=== PATIENT | male | born 1995 | race Caucasian/White ===

== ENCOUNTER 2018-10-08 13:56 | Inpatient (IN) ==
[2018-10-08] MEDS ORDERED: Acetaminophen 325 MG Tablet PO ONE (14:02)
[2018-10-08 14:26] LABS: Baso # (Auto) 0.1 th/mm3 (0.0-0.2); Baso % (Auto) 1.1 % (0.0-2.0); Eos # (Auto) 0.1 th/mm3 (0.0-0.4); Eos % (Auto) 0.9 % (0.0-4.0); Hematocrit 40.2 % (39.0-51.0); Hemoglobin 12.5 gm/dL (13.0-17.0); Lymph # (Auto) 1.9 th/mm3 (1.0-4.8); Lymph % (Auto) 27.6 % (9.0-44.0); Mean Corpuscular HGB Conc 31.2 % (32.0-36.0); Mean Corpuscular Hemoglobin 20.5 pg (27.0-34.0); Mean Corpuscular Volume 65.8 fL (80.0-100.0); Mean Platelet Volume 7.2 fL (7.0-11.0); Mono # (Auto) 0.5 th/mm3 (0.0-0.9); Mono % (Auto) 7.3 % (0.0-8.0); Neut # (Auto) 4.4 th/mm3 (1.8-7.7); Neut % (Auto) 63.1 % (16.0-70.0); Platelet Count 295 th/mm3 (150-450); Red Blood Count 6.11 mil/mm3 (4.50-5.90); Red Cell Distribution Width 15.3 % (11.6-17.2)
[2018-10-08] MEDS ORDERED: Sod Chloride 0.9% Inj 1,000 ML IV.SIG SCH (14:30)
[2018-10-08] MEDS: Sod Chloride 0.9% Inj 1,000 ML IV.CONT SCH ×2 (14:35→22:20)
[2018-10-08 14:37] LABS: Activated Partial Thrombo Time 21.6 sec (23.4-31.7); INR 1.2 Ratio; Prothrombin Time 12.5 sec (9.8-11.6)
[2018-10-08 14:42] LABS: Anion Gap 18 meq/L (5-15); Aspartate Aminotransferase 20 U/L (15-37); Blood Urea Nitrogen 18 mg/dL (7-18); Calcium 8.9 mg/dL (8.5-10.1); Carbon Dioxide 15.3 meq/L (21.0-32.0); Chloride 107 meq/L (98-107); Glomerular Filtration Rate 75 mL/min (>89); Glucose,Random 120 mg/dL (74-106); Magnesium 2.4 mg/dL (1.5-2.5); Potassium 3.7 meq/L (3.5-5.1); Sodium 140 meq/L (136-145)
--- NOTE | 2018-10-08 14:45 | ED ---
HPI General Chief Complaint: Seizure Stated Complaint: Medical Time Seen by Provider: 10/08/18 14:02 Source: patient, family and EMS Mode of arrival: ambulatory Limitations: no limitations History of Present Illness HPI Narrative: 23-year-old male was brought in by EMS after a seizure episode. Patient has history of Chiari malformation status post craniotomy when he was 7- year-old. Patient was evaluated again when he was 14-year-old for headache. 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 Patient has surgery and shunt placement subsequently. Mother states that patient started intracranially and ended at the upper cervical spine. Patient was having tingling sensation of the face and dizziness and was seen by neurologist 8 months ago. Mom reported CT scan at that time was normal. Patient had all procedures done in [place]. Patient visiting [facility] today. Patient started having generalized tonic-clonic seizure this afternoon. EMS was called. Patient was brought to the ED for evaluation. Patient complained of severe headache. Patient denies any visual change. Patient denies any neck pain. Patient denies any chest pain or shortness of breath. Patient denies abdominal pain. Patient denies any focal weakness or numbness or extremity. Patient states that he has nausea and vomiting. Patient denies any urinary or bowel incontinence. Postictal state was reported by EMS. complaint: Reports seizure Onset (ago): minute(s) Description of Episode: Reports tonic-clonic movement -: minutes(s) Witnessed: yes - by bystander Trauma: No Seizure History: Reports none Place: other (Indoor facility) Possible Precipitating Event: Reports none Treatments prior to arrival: Reports none Related Data Home Medications Medication Instructions Recorded Confirmed No Known Home Medications 10/08/18 10/08/18 Allergies Allergy/AdvReac Type Severity Reaction Status Date / Time No Known Allergies Allergy Verified 10/08/18 13:58 Review of Systems ROS: all other systems reviewed are negative [facility] Medical History Medical History Chiari I malformation (Acute) Social History Social History Second Hand Smoke Exposure: No Smoking Status: Current every day smoker Tobacco Type: Cigarettes How Often Do You Have a Drink Containing Alcohol: Never Recent Travel in [facility] within the Last 8 Weeks: Yes Recent Out of Country Travel within the Last 8 Weeks: No Immunization History Tetanus Immunization: Unsure Exam Narrative Exam Narrative: GENERAL: Well-nourished, well-developed patient. SKIN: Focused skin assessment warm/dry. HEAD: Normocephalic. EYES: No scleral icterus. No injection or drainage. Pupils 2 mm equal reactive. NECK: Supple, trachea midline. No JVD or lymphadenopathy. CARDIOVASCULAR: Regular rate and rhythm without murmurs, gallops, or rubs. RESPIRATORY: Breath sounds equal bilaterally. No accessory muscle use. GASTROINTESTINAL: Abdomen soft, non-tender, nondistended. MUSCULOSKELETAL: No cyanosis, or edema. BACK: Nontender without obvious deformity. No CVA tenderness. Neurologic exam: Patient is awake and alert oriented x3. Patient moves all extremities well. No obvious focal neurological deficit. Course Initial Documented Vital Signs Pulse Rate 70 10/08/18 13:59 Respiratory Rate 20 10/08/18 13:59 Blood Pressure 124/78 10/08/18 13:59 Pulse Oximetry 100 10/08/18 13:59 Last Documented Vital Signs Pulse Rate 68 10/08/18 16:38 Respiratory Rate 20 10/08/18 16:38 Blood Pressure 116/66 10/08/18 16:38 Pulse Oximetry 100 10/08/18 16:38 Medical Decision Making MDM Narrative Medical decision making narrative: 23-year-old male with seizure. History of Chiari malformation status post surgery and shunt placement. Normal saline solution 1 L IV bolus. Zofran 4 mg IV. Tylenol 650 mg p.o. I spoke with Dr. Barnes, neurologist head of operation and logistics. Advised Keppra 1 g IV now and Keppra 1 g p.o. twice daily. Patient will be admitted to the medical service with consultation to neurologist. Medical Screen Exam Complete: Yes Emergency Medical Condition: Yes Differential Diagnosis Differential Diagnosis: Differential diagnosis including new onset seizure, electrolyte abnormality, shunt malfunction. Lab Data Lab results reviewed: Yes I reviewed the patient's lab results. Result diagrams: 10/08/18 14:00 10/08/18 14:00 Lab Results 10/08/18 10/08/18 10/08/18 Range/Units 14:00 14:00 14:00 WBC 7.0 (4.0-11.0) th/mm3 RBC 6.11 H (4.50-5.90) mil/mm3 Hgb 12.5 L (13.0-17.0) gm/dL Hct 40.2 (39.0-51.0) % MCV 65.8 L (80.0-100.0) fL MCH 20.5 L (27.0-34.0) pg MCHC 31.2 L (32.0-36.0) % RDW 15.3 (11.6-17.2) % Plt Count 295 (150-450) th/mm3 MPV 7.2 (7.0-11.0) fL Neut % (Auto) 63.1 (16.0-70.0) % Lymph % (Auto) 27.6 (9.0-44.0) % Beckham % (Auto) 7.3 (0.0-8.0) % Eos % (Auto) 0.9 (0.0-4.0) % Baso % (Auto) 1.1 (0.0-2.0) % Neut # (Auto) 4.4 (1.8-7.7) th/mm3 Lymph # (Auto) 1.9 (1.0-4.8) th/mm3 Beckham # (Auto) 0.5 (0.0-0.9) th/mm3 Eos # (Auto) 0.1 (0.0-0.4) th/mm3 Baso # (Auto) 0.1 (0.0-0.2) th/mm3 WBC Differential . Differential Comment Auto diff final PT 12.5 H (9.8-11.6) sec INR 1.2 Ratio APTT 21.6 L (23.4-31.7) sec Sodium (136-145) meq/L Potassium (3.5-5.1) meq/L Chloride (98-107) meq/L Carbon Dioxide (21.0-32.0) meq/L Anion Gap (5-15) meq/L BUN (7-18) mg/dL Creatinine (0.60-1.30) mg/dL Estimated GFR (>89) mL/min Random Glucose (74-106) mg/dL Calcium (8.5-10.1) mg/dL Magnesium (1.5-2.5) mg/dL Total Bilirubin (0.2-1.0) mg/dL AST (15-37) U/L ALT (12-78) U/L Alkaline Phosphatase (45-117) U/L Total Creatine Kinase (39-308) U/L Total Protein (6.4-8.2) g/dL Albumin (3.4-5.0) g/dL TSH Cancelled 10/08/18 Range/Units 14:00 WBC (4.0-11.0) th/mm3 RBC (4.50-5.90) mil/mm3 Hgb (13.0-17.0) gm/dL Hct (39.0-51.0) % MCV (80.0-100.0) fL MCH (27.0-34.0) pg MCHC (32.0-36.0) % RDW (11.6-17.2) % Plt Count (150-450) th/mm3 MPV (7.0-11.0) fL Neut % (Auto) (16.0-70.0) % Lymph % (Auto) (9.0-44.0) % Beckham % (Auto) (0.0-8.0) % Eos % (Auto) (0.0-4.0) % Baso % (Auto) (0.0-2.0) % Neut # (Auto) (1.8-7.7) th/mm3 Lymph # (Auto) (1.0-4.8) th/mm3 Beckham # (Auto) (0.0-0.9) th/mm3 Eos # (Auto) (0.0-0.4) th/mm3 Baso # (Auto) (0.0-0.2) th/mm3 WBC Differential Differential Comment PT (9.8-11.6) sec INR Ratio APTT (23.4-31.7) sec Sodium 140 (136-145) meq/L Potassium 3.7 (3.5-5.1) meq/L Chloride 107 (98-107) meq/L Carbon Dioxide 15.3 L (21.0-32.0) meq/L Anion Gap 18 H (5-15) meq/L BUN 18 (7-18) mg/dL Creatinine 1.19 (0.60-1.30) mg/dL Estimated GFR 75 L (>89) mL/min Random Glucose 120 H (74-106) mg/dL Calcium 8.9 (8.5-10.1) mg/dL Magnesium 2.4 (1.5-2.5) mg/dL Total Bilirubin 0.7 (0.2-1.0) mg/dL AST 20 (15-37) U/L ALT 20 (12-78) U/L Alkaline Phosphatase 57 (45-117) U/L Total Creatine Kinase 157 (39-308) U/L Total Protein 8.4 H (6.4-8.2) g/dL Albumin 5.0 (3.4-5.0) g/dL TSH 2.260 Imaging Data Attestation: I personally reviewed and interpreted this imaging study as follows : Radiologist's impression: Head CT 10/08/18 14:02 CONCLUSION: 1. No acute findings. . Shunt Study 10/08/18 14:33 CONCLUSION: No shunt is identified. Discharge Plan Discharge Disposition Patient Disposition: ED Admit(ED Internal Use Only) Discharge Details Diagnosis: New onset seizure Physicians Team ED Provider: Luis Hollins Primary Care Provider: UNKNOWN, Rxs /Orders / Referrals /Forms Prescriptions: No Action No Known Home Medications RF: 0 Discharge Interventions Interventions: Vital Signs Last Done: 10/08/18 16:38 Status ED Status: With Doctor
[2018-10-08 14:53] LABS: Alanine Aminotransferase 20 U/L (12-78); Alkaline Phosphatase 57 U/L (45-117); Creatine Kinase 157 U/L (39-308); Total Protein 8.4 g/dL (6.4-8.2)
--- NOTE | 2018-10-08 15:36 | XR ---
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 CLINICAL DATA: This is the patient's initial encounter. Patient reports that signs and symptoms have been present for 1 day and indicates a pain score of 7/10. MEDICAL/SURGICAL HISTORY: None. . [facility] [place] shunt COMPARISON: No prior exams available for comparison. FINDINGS: No shunt catheter is identified. Visualized chest and abdominal structures are unremarkable. CONCLUSION: No shunt is identified. Electronically signed by: Jay Calvillo MD Board Certified Radiologist 10/08/2018 3:34 PM EST
--- NOTE | 2018-10-08 15:45 | CT ---
EXAM DATE: 10/08/2018 3:35 PM EST AGE/SEX: 23 years / Male INDICATIONS: Headache CLINICAL DATA: This is the patient's initial encounter. Patient reports that signs and symptoms have been present for 1 day and indicates a pain score of 5/10. MEDICAL/SURGICAL HISTORY: . Shunt Chiari I malformation None. RADIATION DOSE: 38.08 CTDI (mGy) COMPARISON: [facility], SHUNT SERIES, 10/08/2018. . TECHNIQUE: CT of the head without contrast. Using automated exposure control and adjustment of the mA and/or kV according to patient size, radiation dose was kept as low as reasonably achievable to ob tain optimal diagnostic quality images. DICOM format image data is available electronically for revi ew and comparison. FINDINGS: Ventricles and cisterns are of normal size and configuration. No signs of intracranial hemorrhage, ac stepan infarct, or mass. The patient is status post suboccipital craniectomy with history of Chiari I ma lformation. No fractures. CONCLUSION: 1. No acute findings. . Electronically signed by: Arnold Josue MD Board Certified Radiologist 10/08/2018 3:44 PM EST
[2018-10-08] MEDS ORDERED: levETIRAcetam 1000mg/100mL Inj 100 ML IV.SIG ONE (17:37)
[2018-10-08 17:44] LABS: Amphetamine Screen,Urine Neg (Neg); Barbiturate Screen,Urine Neg (Neg); Cannabinoid Screen,Urine Pos (Neg); Cocaine Screen,Urine Neg (Neg)
[2018-10-08 17:48] LABS: Opiate Screen,Urine Neg (Neg)
[2018-10-08] MEDS ORDERED: Temazepam 15 MG Capsule PO PRN (18:10)
[2018-10-08] MEDS ORDERED: Acetaminophen 325 MG Tablet PO PRN ×2 (18:10→18:12)
--- NOTE | 2018-10-08 18:26 | P.HP ---
History of Present Illness Primary Care Physician: UNKNOWN Chief Complaint: Tonic-clonic seizure/altered mental status change History of Present Illness: 23-year-old man with a medical history of Chiari malformation status post craniotomy at age 7 was brought to the ED for evaluation of her activity. Patient was records this morning of her whole family when he started having generalized tonic-clonic seizure. EMS was called and patient was postictal. Apparently, patient states over the past 12 months he was having some left facial numbness and tingling, and was told by his neurologist possibly had some silent seizure and this was 8 months ago. He is not currently on any type of antiepileptic drugs. Patient has a history of shunt placement. Denies any chest pain or shortness of breath. Patient is followed by a neurologist up in [place], Dr. Adamson [phone] Inpatient Certification: I certify that the inpatient services were ordered in accordance with Medicare regulations governing the order. 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 - Medical History Medical History: Medical History (Last Reviewed 10/08/18 @ 14:43 by Luis Hollins MD) Chiari I malformation - Family History Family History: Family History (Last Updated 10/08/18 @ 18:19 by Andres Maddox MD) Other Diabetes mellitus, type II Hypothyroidism - Tobacco History Second Hand Smoke Exposure: No Tobacco Use In Past 30 Days: Yes Smoking Status: Current every day smoker Tobacco Type: Cigarettes - Alcohol History How Often Do You Have a Drink Containing Alcohol: Never - Travel History Recent Travel in the [place] Within the Last 8 Weeks: Yes Recent Travel Out of the Country Within the Last 8 Weeks: No - Immunization History Tetanus Immunization: Unsure Medications and Allergies Active Medications: Active Medications Acetaminophen (Tylenol) 650 mg PO Q4H PRN PRN Reason: Temp > 100.4 Acetaminophen (Tylenol) 650 mg PO Q4H PRN PRN Reason: PAIN SCALE 1 TO 10 Al Hydroxide/Mg Hydroxide (Milk Of Omi Diamond) 30 ml PO Q12H PRN PRN Reason: Mild Constipation Sodium Chloride (Ns Inj) 1,000 mls @ 125 mls/hr IV.CONT .Q8H [facility] Last Admin: 10/08/18 14:35 Dose: 125 mls/hr Lorazepam (Ativan Inj) 2 mg IV.PUSH Q10M PRN PRN Reason: SEE LABEL COMMENTS Ondansetron HCl (Zofran Inj) 4 mg IV.PUSH Q6H PRN PRN Reason: NAUSEA OR VOMITING Sodium Chloride (Ns Flush) 2 ml IV.FLUSH PRN PRN PRN Reason: FLUSH AFTER USING IV ACCESS Sodium Chloride (Ns Flush) 2 ml IV.FLUSH BID CAMRON Temazepam (Restoril) 15 mg PO HS PRN PRN Reason: INSOMNIA Allergies Allergy/AdvReac Type Severity Reaction Status Date / Time No Known Allergies Allergy Verified 10/08/18 13:58 Home Medications Medication Instructions Recorded Confirmed Type No Known Home Medications 10/08/18 10/08/18 History Exam Vital signs: Vital Signs 10/08/18 13:59 10/08/18 14:04 10/08/18 14:38 Pulse Rate 70 79 67 Respiratory Rate 20 16 18 Blood Pressure 124/78 129/84 126/87 Pulse Oximetry 100 100 100 10/08/18 16:38 Pulse Rate 68 Respiratory Rate 20 Blood Pressure 116/66 Pulse Oximetry 100 Intake & Output 10/07/18 10/08/18 10/08/18 18:59 06:59 18:59 Intake Total 1000 / 1000 Balance 1000 / 1000 Weight 79.379 kg Intake: IV 1000 / 1000 NS Inj 1,000 ML @ 1000 mls/hr 1000 / 1000 IV.SIG BOLUS [facility] Rx#:[id number] Narrative: GENERAL: NAD SKIN: Warm and dry. HEAD: Atraumatic. Normocephalic. EYES: Pupils equal and round. No scleral icterus. No injection or drainage. ENT: No nasal bleeding or discharge. Mucous membranes pink and moist. NECK: Trachea midline. No JVD. left neck-TTP CARDIOVASCULAR: Regular rate and rhythm. RESPIRATORY: No accessory muscle use. Clear to auscultation. Breath sounds equal bilaterally. GASTROINTESTINAL: Abdomen soft, non-tender, nondistended. Hepatic and splenic margins not palpable. MUSCULOSKELETAL: Extremities without clubbing, cyanosis, or edema. No obvious deformities. NEUROLOGICAL: Awake and alert. No obvious cranial nerve deficits. Motor grossly within normal limits. Five out of 5 muscle strength in the arms and legs. Normal speech. PSYCHIATRIC: Appropriate mood and affect; insight and judgment normal. Results - Labs CBC & Chem 7: 10/08/18 14:00 10/08/18 14:00 Labs: Laboratory Results - last 24 hr 10/08/18 10/08/18 10/08/18 14:00 14:00 14:00 WBC 7.0 RBC 6.11 H Hgb 12.5 L Hct 40.2 MCV 65.8 L MCH 20.5 L MCHC 31.2 L RDW 15.3 Plt Count 295 MPV 7.2 Neut % (Auto) 63.1 Lymph % (Auto) 27.6 Anderson % (Auto) 7.3 Eos % (Auto) 0.9 Baso % (Auto) 1.1 Neut # (Auto) 4.4 Lymph # (Auto) 1.9 Anderson # (Auto) 0.5 Eos # (Auto) 0.1 Baso # (Auto) 0.1 WBC Differential . Differential Comment Auto diff final PT 12.5 H INR 1.2 APTT 21.6 L Sodium Potassium Chloride Carbon Dioxide Anion Gap BUN Creatinine Estimated GFR Random Glucose Calcium Magnesium Total Bilirubin AST ALT Alkaline Phosphatase Total Creatine Kinase Total Protein Albumin TSH Cancelled Urine Opiates Screen Ur Barbiturates Screen Ur Amphetamines Screen U Benzodiazepines Scrn Urine Cocaine Screen U Cannabinoids Screen 10/08/18 10/08/18 14:00 16:45 WBC RBC Hgb Hct MCV MCH MCHC RDW Plt Count MPV Neut % (Auto) Lymph % (Auto) Anderson % (Auto) Eos % (Auto) Baso % (Auto) Neut # (Auto) Lymph # (Auto) Anderson # (Auto) Eos # (Auto) Baso # (Auto) WBC Differential Differential Comment PT INR APTT Sodium 140 Potassium 3.7 Chloride 107 Carbon Dioxide 15.3 L Anion Gap 18 H BUN 18 Creatinine 1.19 Estimated GFR 75 L Random Glucose 120 H Calcium 8.9 Magnesium 2.4 Total Bilirubin 0.7 AST 20 ALT 20 Alkaline Phosphatase 57 Total Creatine Kinase 157 Total Protein 8.4 H Albumin 5.0 TSH 2.260 Urine Opiates Screen Neg Ur Barbiturates Screen Neg Ur Amphetamines Screen Neg U Benzodiazepines Scrn Neg Urine Cocaine Screen Neg U Cannabinoids Screen Pos H - Imaging Impressions Head CT 10/08/18 14:02 CONCLUSION: 1. No acute findings. . Shunt Study 10/08/18 14:33 CONCLUSION: No shunt is identified. Caprini VTE Risk Assessment Caprini VTE Risk Assessment: No/Low Risk (score <= 1) Caprini Risk Assessment Model: Point Value = 1 Point Value = 2 Point Value = 3 Point Value = 5 Age 41-60 Minor surgery BMI > 25 kg/m2 Swollen legs Varicose veins or History of unexplained or recurrent spontaneous Oral contraceptives or hormone replacement Sepsis (< 1 month) Serious lung disease, including pneumonia (< 1 month) Abnormal pulmonary function Acute myocardial infarction Congestive heart failure (< 1 month) History of inflammatory bowel disease Medical patient at bed rest Age 61-74 Arthroscopic surgery Major open surgery (> 45 min) Laparoscopic surgery (> 45 min) Malignancy Confined to bed (> 72 hours) Immobilizing plaster cast Central venous access Age >= 75 History of VTE Family history of VTE Factor V Leiden Prothrombin [id number] Lupus anticoagulant Anticardiolipin antibodies Elevated serum homocysteine Heparin-induced thrombocytopenia Other congenital or acquired thrombophilia Stroke (< 1 month) Elective arthroplasty Hip, pelvis, or leg fracture Acute spinal cord injury (< 1 month) Prophylaxis Regimen: Total Risk Factor Score Risk Level Prophylaxis Regimen 0-1 Low Early ambulation 2 Moderate Order ONE of the following: *Sequential Compression Device (SCD) *Heparin 5000 units SQ BID 3-4 Higher Order ONE of the following medications: *Heparin 5000 units SQ TID *Enoxaparin/Lovenox 40 mg SQ daily (WT < 150 kg, CrCl > 30 mL/min) *Enoxaparin/Lovenox 30 mg SQ daily (WT < 150 kg, CrCl > 10-29 mL/min) *Enoxaparin/Lovenox 30 mg SQ BID (WT < 150 kg, CrCl > 30 mL/min) AND/OR *Sequential Compression Device (SCD) 5 or more Highest Order ONE of the following medications: *Heparin 5000 units SQ TID (Preferred with Epidurals) *Enoxaparin/Lovenox 40 mg SQ daily (WT < 150 kg, CrCl > 30 mL/min) *Enoxaparin/Lovenox 30 mg SQ daily (WT < 150 kg, CrCl > 10-29 mL/min) *Enoxaparin/Lovenox 30 mg SQ BID (WT < 150 kg, CrCl > 30 mL/min) AND *Sequential Compression Device (SCD) Assessment and Plan - Plan 23-year-old man with Toxic encephalopathy-now resolved Secondary to seizure Treat as such New onset seizure activity Patient for medical history of Chiari malformation status post craniotomy at age [address] noted and reviewed by me without any intracranial abnormality Status post Keppra IV x1 in ED, will continue with Keppra IV every 12 hours pending neurology consultation Check brain MRA/MRI as well as EEG Check albumin, UDS UDS positive for cannabinoid Seizure precaution and Ativan as needed History of Chiari malformation status post craniotomy History of shunt placement Shunt study was negative Brain MRI pending Please call patient's neurologist, Dr. Adamson [phone]
--- NOTE | 2018-10-08 19:32 | MR ---
EXAM DATE: 10/08/2018 7:26 PM EST AGE/SEX: 23 years / Male INDICATIONS: Seizures. CLINICAL DATA: This is the patient's initial encounter. Patient reports that signs and symptoms have been present for 1 day and indicates a pain score of 3/10. MEDICAL/SURGICAL HISTORY: . Chiari malformation. Craniotomy. COMPARISON: [facility] [place], MR HEAD W/O CONTRAST, 10/08/2018. . TECHNIQUE: 3D [id number] MRA was performed. Source images, multiplanar STS MIP, and 3D volum e MIP reconstructions were reviewed. FINDINGS: There is excellent visualization of the major intracranial arteries out to the second-order branch ve ssels. There is no evidence for aneurysm, vessel truncation or stenosis, and no evidence for vascula r malformation. Anatomic variant diminutive right A1 segment noted. Patent anterior communicating wit h normal caliber A2 and distal segments bilaterally. CONCLUSION: No acute abnormalities of the intracranial arteries. Electronically signed by: Gil Arce MD Board Certified Radiologist 10/08/2018 7:31 PM EST
--- NOTE | 2018-10-08 19:35 | MR ---
EXAM DATE: 10/08/2018 7:28 PM EST AGE/SEX: 23 years / Male INDICATIONS: Seizures. CLINICAL DATA: This is the patient's initial encounter. Patient reports that signs and symptoms have been present for 1 day and indicates a pain score of 2/10. MEDICAL/SURGICAL HISTORY: . Chiari malformation. Craniotomy. COMPARISON: [facility] [place], CT HEAD W/O CONTRAST, 10/08/2018. . TECHNIQUE: Multiplanar, multisequence examination of the brain was performed without contrast. FINDINGS: Cerebrum: The ventricles are normal for age. No evidence of midline shift, mass lesion, hemorrhage or acute infarction. No extraaxial fluid collections are seen. The pituitary gland and suprasellar cistern are normal in configuration. White Matter: No significant signal abnormalities are seen in the white matter. Posterior Fossa: The cerebellum and brainstem are intact. The 4th ventricle is midline. The cerebel lopontine angle is unremarkable. The cerebellar tonsils are normal in position. Diffusion Imaging: No focal areas of restricted diffusion are seen. No evidence of acute infarction . Extracranial: The visualized portions of the orbits and paranasal sinuses are unremarkable. There is evidence of a previous occipital craniotomy. Mild residual crowding of the posterior fossa. CONCLUSION: No acute intracranial abnormalities are demonstrated on this noncontrast head MRI. Previo us occipital craniotomy/Chiari malformation surgery. Electronically signed by: Gil Arce MD Board Certified Radiologist 10/08/2018 7:34 PM EST
--- NOTE | 2018-10-08 19:50 | MR ---
EXAM DATE: 10/08/2018 7:38 PM EST AGE/SEX: 23 years / Male INDICATIONS: . Seizure, light headed for one day. CLINICAL DATA: This is the patient's initial encounter. Patient reports that signs and symptoms have been present for 1 day and indicates a pain score of 2/10. MEDICAL/SURGICAL HISTORY: . Chiari malformation. Craniotomy. COMPARISON: [facility] [place], MRA HEAD W/O CONTRAST, 10/08/2018. . TECHNIQUE: 10 ml Gadavist (gadobutrol) contrast infused MRA (single exam dose) of the extracranial circulation was performed using a neurovascular coil. Postprocessing was performed, including rotati ng sub-volume maximum intensity projections of each carotid artery, rotating full-volume maximum inte nsity projections of both carotid arteries, sagittal and coronal sliding thin-slab reformations of ea ch carotid artery, and left oblique sliding thin-slab reformation through the aortic arch to include the origin of the arch branch vessels. FINDINGS: Aortic Arch : There is a three-vessel origin of the great vessels from the aorta. No evidence of o stial narrowing. Right Carotid : The common carotid artery is intact. The carotid bulb has a normal configuration wi thout ulceration or narrowing. The internal carotid artery lumen is smooth without stenosis. The ex ternal carotid artery is intact. Left Carotid : The common carotid artery is intact. The carotid bulb has a normal configuration wit hout ulceration or narrowing. The internal carotid artery lumen is smooth without stenosis. The ext ernal carotid artery is intact. Vertebrals : The right vertebral artery is smaller than the left. The basilar artery is unremarkable . No stenotic lesions are seen. CONCLUSION: 1. Unremarkable examination. Percent stenosis is calculated using the diameter of the stenotic region over the diameter of the nor mal distal internal carotid artery Electronically signed by: Logan Cox MD Board Certified Radiologist 10/08/2018 7:49 PM EST
[2018-10-08] MEDS ORDERED: Morphine Sulfate Inj 2 MG/ML Vial IV.PUSH ONE (20:09)
[2018-10-08] MEDS ORDERED: Gadobutrol PF 10 MMOL/10 ML Vial (for RAD) IV.SIG ONE (20:25)
[2018-10-08] MEDS ORDERED: Morphine Inj 4 MG/ML Vial IV.PUSH ONE (20:30)
[2018-10-09] MEDS: Sod Chloride 0.9% Inj 1,000 ML IV.CONT SCH ×2 (06:26→14:53)
[2018-10-09 07:19] LABS: Baso # (Auto) 0.1 th/mm3 (0.0-0.2); Baso % (Auto) 0.8 % (0.0-2.0); Eos # (Auto) 0.2 th/mm3 (0.0-0.4); Eos % (Auto) 1.8 % (0.0-4.0); Hematocrit 33.8 % (39.0-51.0); Hemoglobin 10.9 gm/dL (13.0-17.0); Lymph # (Auto) 1.7 th/mm3 (1.0-4.8); Lymph % (Auto) 20.1 % (9.0-44.0); Mean Corpuscular HGB Conc 32.4 % (32.0-36.0); Mean Corpuscular Hemoglobin 20.6 pg (27.0-34.0); Mean Corpuscular Volume 63.5 fL (80.0-100.0); Mean Platelet Volume 7.2 fL (7.0-11.0); Mono # (Auto) 0.6 th/mm3 (0.0-0.9); Mono % (Auto) 6.8 % (0.0-8.0); Neut % (Auto) 70.5 % (16.0-70.0); Platelet Count 242 th/mm3 (150-450); Red Blood Count 5.32 mil/mm3 (4.50-5.90); Red Cell Distribution Width 14.7 % (11.6-17.2); White Blood Count 8.5 th/mm3 (4.0-11.0)
[2018-10-09 07:47] LABS: Anion Gap 5 meq/L (5-15); Blood Urea Nitrogen 16 mg/dL (7-18); Calcium 7.9 mg/dL (8.5-10.1); Carbon Dioxide 25.7 meq/L (21.0-32.0); Chloride 111 meq/L (98-107); Glomerular Filtration Rate Greater Than 89 mL/min (>89); Glucose,Random 85 mg/dL (74-106); Potassium 4.2 meq/L (3.5-5.1); Sodium 142 meq/L (136-145)
[2018-10-09 07:51] LABS: Alanine Aminotransferase 19 U/L (12-78); Alkaline Phosphatase 46 U/L (45-117); Aspartate Aminotransferase 19 U/L (15-37); Total Protein 6.6 g/dL (6.4-8.2)
--- NOTE | 2018-10-09 14:41 | P.PNIM ---
Subjective Interval history: Follow up on patient with new seizure. Patient seen and examined. Patient denies any seizure activity since admission. He is complaining of some left-sided neck pain and spasm. He says he hears what he thinks is fluid moving around in his neck on the left side. He denies any fever or chills. He denies any chest pain or dyspnea. He denies any N/V or abdominal pain. Patient is asking if he can be discharged today. He says he can follow up with his neurologist in [place] following discharge. However, family is adamant patient undergo MRI imaging prior to discharge. Apparently, patients shunt is located within a cyst within his cervical spine. Physical Exam Vital signs: Vital Signs 10/08/18 14:38 10/08/18 16:38 10/08/18 18:18 Temperature Pulse Rate 67 68 54 L Respiratory Rate 18 20 14 Blood Pressure 126/87 116/66 122/64 Pulse Oximetry 100 100 99 10/08/18 20:15 10/08/18 21:10 10/09/18 00:00 Temperature 97.6 F 97.8 F Pulse Rate 66 64 68 Respiratory Rate 16 16 14 Blood Pressure 124/62 131/76 117/67 Pulse Oximetry 99 100 98 10/09/18 04:00 10/09/18 08:00 10/09/18 12:00 Temperature 97.8 F 97.8 F 98.1 F Pulse Rate 62 67 55 L Respiratory Rate 15 17 17 Blood Pressure 126/67 108/60 117/64 Pulse Oximetry 99 100 100 Intake & Output 10/08/18 10/09/18 10/09/18 18:59 06:59 18:59 Intake Total 1100 / 1100 2525 / 2525 Balance 1100 / 1100 2525 / 2525 Weight 79.379 kg 79 kg Intake: IV 1100 / 1100 2105 / 2105 NS Inj 1,000 ML @ 125 mls/hr IV 1999 / 1999 .CONT .Q8H [facility] Rx#:[id number] NS Inj 1,000 ML @ 1000 mls/hr 1000 / 1000 IV.SIG BOLUS [facility] Rx#:[id number] Keppra 1000 mg/100 mL Premix 100 / 100 100 ML @ 400 mls/hr IV.SIG ONCE ONE Rx#:[id number] Keppra Inj 500 MG In NS Inj 100 105 / 105 ML @ 400 mls/hr IV.SIG Q12H [facility] Rx#:[id number] Oral 420 / 420 Other: # Voids 1 Weight On Admission 79 kg Narrative: GENERAL: WDWN young male patient, INAD. Awake and alert. Appears comfortable. SKIN: Warm and dry. No generalized rash. HEENT: Atraumatic. Normocephalic. Pupils equal and round. No scleral icterus. No injection or drainage. No nasal bleeding or discharge. Mucous membranes pink and moist. NECK: Trachea midline. CARDIOVASCULAR: Regular rate and rhythm. RESPIRATORY: No accessory muscle use. Clear to auscultation. Breath sounds equal bilaterally. GASTROINTESTINAL: Abdomen soft, non-tender, nondistended. +BS. MUSCULOSKELETAL: Extremities without clubbing, cyanosis, or edema. No obvious deformities. +left sided palpable tender left sided cervical paraspinal muscle spasm. NEUROLOGICAL: Awake and alert. No obvious cranial nerve deficits. Motor grossly within normal limits. Five out of 5 muscle strength in the arms and legs. Normal speech. PSYCHIATRIC: Appropriate mood and affect; insight and judgment normal. Results Labs CBC & Chem 7: 10/09/18 06:50 10/09/18 06:50 Imaging Imaging: Impressions Head CT 10/08/18 14:02 CONCLUSION: 1. No acute findings. . Shunt Study 10/08/18 14:33 CONCLUSION: No shunt is identified. Head MRI 10/08/18 17:51 CONCLUSION: No acute intracranial abnormalities are demonstrated on this noncontrast head MRI. Previous occipital craniotomy/Chiari malformation surgery. Head MRA 10/08/18 17:51 CONCLUSION: No acute abnormalities of the intracranial arteries. Neck MRA 10/08/18 17:51 CONCLUSION: 1. Unremarkable examination. Percent stenosis is calculated using the diameter of the stenotic region over the diameter of the normal distal internal carotid artery Assessment and Plan Plan 23-year-old man with Toxic encephalopathy-now resolved Secondary to seizure Treat as such New onset seizure activity CT head without any acute intracranial abnormality MRI/MRI brain unremarkable Patient for medical history of Chiari malformation status post craniotomy at age 7. S/p METAL MIXER shunt placement at age 14. Reportedly, patient was told by his Neurologist 7 or 8 mos ago the shunt was sluggish but still working Status post Keppra IV x1 in ED, will continue with Keppra IV every 12 hours - transition to po Keppra Evaluated by Neurology who cleared patient for discharge on po Keppra BID. Patient to follow up with his neurologist following discharge. No driving, operating heavy machinery, going up on heights, swimming alone or caring for young children unsupervised Seizure precaution and Ativan as needed Family extremely concerned about shunt status especially in light of patients neck pain where the shunt is reportedly located. Will order MRI cervical and thoracic spine for further evaluation and will consult Neurosurgery if indicated. Dr. Anderson did speak with Dr. Kebede regarding case and no e/o fluid accumulation on imaging done thus far History of Chiari malformation status post craniotomy History of shunt placement Shunt study was negative - actually no identified shunt noted on study Brain MRI unremarkable Left sided neck pain Patient with palpable tender muscle spasm left cervical paraspinous and parascapular area MRI neck ordered as above trial of Lidoderm patch short course of NSAIDS K thermia Substance use/abuse UDS positive for cannabinoid Discussed with patient importance of cessation DVT prophylaxis Patient is ambulatory Progress Note: Quality VTE Deep Vein Thrombosis/Pulmonary Embolism Present on Admission: No
--- NOTE | 2018-10-09 18:29 | MB ---
cc: Shu Abreu MD DATE: 10/09/2018 REASON FOR CONSULTATION: Possible seizure. HISTORY OF PRESENT ILLNESS: This is a 23-year-old male with a history of Chiari malformation post craniotomy at age 7, was brought in for evaluation of possible seizure activity. He was apparently having a generalized tonic-clonic event and was brought in. He did bite his tongue. He was postictal. Over the last few months, he states he started having some numbness in the face and tingling and saw his neurologist in [place] and told him that it may be some type of seizure activity, but was never placed on any antiepileptic medicines. He had a full evaluation. He is tolerating the Keppra. He is awake and alert, in no distress and asking if he can go home. He did have his studies done. He was loaded with Keppra, but he is on 500 mg b.i.d. PAST MEDICAL HISTORY: As stated, has a Chiari malformation, status post craniotomy at age 7. He states he has a shunt. No other family history. SOCIAL HISTORY: He is a smoker of cigarettes. No alcohol per chart. FAMILY HISTORY: Diabetes and hypothyroidism, but does not take any medicines, he states, at home. PHYSICAL EXAMINATION: VITAL SIGNS: His temperature is 98.1, pulse 61, respiratory rate 16, blood pressure 125/72, saturating at 100%. NECK: Supple. HEART: Regular. NEUROLOGIC: Awake, alert, oriented, fluent. Pupils are reactive. Visual chin full. Face symmetrical. Tongue midline. He does have a scar over the nape of his neck. Motor: No tremor, drift, or leg lag. Cerebellar testing normal. DTRs are brisk. Toes withdraw. Does have some sensitivity over his lower cervical, thoracic spine to touch. IMAGING: There was a shunt study done and there is no shunt seen. MRI of the brain shows old craniotomy, but no acute findings. [place] and carotids were unremarkable. LABORATORY DATA: Labs were reviewed. He had a hemoglobin of 10.9, platelets 242,000. White count 8.5. Chemistries reviewed. TSH 2.26, calcium 7.9. GFR greater than 89. Tox screen positive for cannabinoids. IMPRESSION: Possible seizure. He did have an EEG, I will have to get that result, but if he is doing fine, from my perspective he can be discharged on Keppra 500 mg twice a day. He is not to drive in the state [facility] for at least 6 months, he needs to follow up with his neurologist. Continue current care as is indicated. MD [facility] Cha/yefri , 05:06 PM , 05:14 PM
--- NOTE | 2018-10-09 19:40 | MR ---
EXAM DATE: 10/09/2018 7:24 PM EST AGE/SEX: 23 years / Male INDICATIONS: . Left sided neck and back pain since seizure yesterday. CLINICAL DATA: This is the patient's initial encounter. Patient reports that signs and symptoms have been present for 2 days and indicates a pain score of 8/10. MEDICAL/SURGICAL HISTORY: . Chiuri malformation. Craniotomy. COMPARISON: [facility] [place], MR HEAD W/O CONTRAST, 10/08/2018. . TECHNIQUE: Multiplanar, multisequence MRI examination of the cervical spine was performed without co ntrast. FINDINGS: Vertebrae: Normal vertebral body height. Homogeneous marrow signal. Alignment: Normal. Cord: There is central T2 signal abnormality seen throughout the cord extending from C2 to C5 level. Post Fossa: The cerebellar tonsils are normal in position. C2-C3: The thecal sac has a normal configuration. There is no evidence of disc herniation or spinal canal stenosis. The neural foramina are patent bilaterally. C3-C4: The thecal sac has a normal configuration. There is no evidence of disc herniation or spinal canal stenosis. The neural foramina are patent bilaterally. C4-C5: The thecal sac has a normal configuration. There is no evidence of disc herniation or spinal canal stenosis. The neural foramina are patent bilaterally. C5-C6: The thecal sac has a normal configuration. There is no evidence of disc herniation or spinal canal stenosis. The neural foramina are patent bilaterally. C6-C7: The thecal sac has a normal configuration. There is no evidence of disc herniation or spinal canal stenosis. The neural foramina are patent bilaterally. C7-T1: No epidural impressions seen. CONCLUSION: 1. Central T2 signal abnormality within the cord from C2 to C5 somewhat unusual but may be related t o a syrinx versus less likely demyelinating process. This is commonly seen with patients with Chiari malformation. Outpatient imaging of the spine recommended in 3 months to document stability. At that time contrast should also be utilized. 2. The remainder of the cervical spine otherwise unremarkable. Electronically signed by: Andres Guadarrama MD Board Certified Radiologist 10/09/2018 7:39 PM EST
--- NOTE | 2018-10-09 19:56 | MR ---
EXAM DATE: 10/09/2018 7:17 PM EST AGE/SEX: 23 years / Male INDICATIONS: . Left sided neck and back pain since seizure yesterday. CLINICAL DATA: This is the patient's initial encounter. Patient reports that signs and symptoms have been present for 2 days and indicates a pain score of 8/10. MEDICAL/SURGICAL HISTORY: . Chiuri malformation. Craniotomy. COMPARISON: [facility] [place], MR CERVICAL SPINE W/O CONTRAST, 10/09/2018. . TECHNIQUE: Multiplanar, multisequence MRI of the thoracic spine was performed. FINDINGS: Vertebrae: Normal vertebral body height. Homogeneous marrow signal. Alignment: Normal. Cord: There is some T2 signal abnormality centrally within the spinal cord canal at T6-7, T7-8, T8-9 and T10-11 levels. 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 Ther e is T2 signal abnormality seen on both sides of the filum at T12-L1. T1-T2: The thecal sac has a normal diameter. No evidence of disc bulge or protrusion. T2-T3: The thecal sac has a normal diameter. No evidence of disc bulge or protrusion. T3-T4: The thecal sac has a normal diameter. No evidence of disc bulge or protrusion. T4-T5: The thecal sac has a normal diameter. No evidence of disc bulge or protrusion. T5-T6: Mild broad-based disc bulge abuts ventral thecal sac without canal stenosis T6-T7: The thecal sac has a normal diameter. No evidence of disc bulge or protrusion. T7-T8: Small right paracentral protrusion abuts ventral thecal sac without canal stenosis. T8-T9: The thecal sac has a normal diameter. No evidence of disc bulge or protrusion. T9-T10: The thecal sac has a normal diameter. No evidence of disc bulge or protrusion. T10-T11: The thecal sac has a normal diameter. No evidence of disc bulge or protrusion. T11-T12: The thecal sac has a normal diameter. No evidence of disc bulge or protrusion. T12-L1: The thecal sac has a normal diameter. No evidence of disc bulge or protrusion. CONCLUSION: 1. T2 signal abnormality scattered centrally within the cord and also within a split filum terminale most consistent with syrinx. Follow-up imaging on an outpatient basis in 3 months recommended. At th is time contrast imaging may be warranted. 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 Electronically signed by: Andres Guadarrama MD Board Certified Radiologist 10/09/2018 7:55 PM EST
[2018-10-09] MEDS ORDERED: Lidocaine 5% Patch T-DERMAL SCH (20:30)
[2018-10-09] MEDS ORDERED: levETIRAcetam 500 MG Tablet PO SCH (21:00)
[2018-10-09] MEDS ORDERED: Ibuprofen 600 MG Tablet PO SCH (21:00)
[2018-10-09] MEDS ORDERED: Famotidine 20 MG Tablet PO SCH (21:00)
--- NOTE | 2018-10-09 21:24 | MG ---
cc: Shu Abreu MD EEG NUMBER: [id number] REFERRING: Dr. Hollins ROOM: 1433 Hyperventilation, photic stimulation Awake, drowsy, asleep study. MRI shows Chiari and chronic craniotomy changes, nothing acute. Admitted for first generalized tonic-clonic seizure currently on Keppra started in the hospital. The patient has an overall background alpha of 9 Hz, 20-30 microvolts. Some minor muscle artifact. Photic stimulation does elicit a posterior driving response. Hyperventilation is performed with a normal alpha rhythm. Some eye movement artifact, this is myogenic artifact. There is no epileptic activity or potentials during that recording. He has a good alpha rhythm. IMPRESSION: Normal-appearing electroencephalogram without any epileptiform features in this one recording. Clinical correlation. Shu Abreu MD DF/gallo/ , 08:14 PM , 08:19 PM
--- NOTE | 2018-10-10 01:24 | ECG ---
Date Performed: 10/08/2018 Time Performed: 14:14:16 PTAGE: 23 years EKG: Sinus rhythm INCOMPLETE RIGHT BUNDLE BRANCH BLOCK BORDERLINE ECG NO PREVIOUS TRACING DOCTOR: Joshua Julio Interpretating Date/Time 10/10/2018 01:23:48
[2018-10-10] MEDS ORDERED: levETIRAcetam 500 MG Tablet PO SCH (09:00)
[2018-10-10] MEDS ORDERED: Lidocaine 5% Patch T-DERMAL SCH (09:00)
--- NOTE | 2018-10-10 19:58 | P.DS ---
DS: Providers Date of admission: 10/08/18 18:06 Primary care physician: UNKNOWN Consults: 10/08/18 18:12 Consult to Neurology Routine Consulting Provider: Shu Abreu Reason for Consultation: 23-year-old man with seizure activity, please evaluate and advise for therapy Notified:: Service Spoke with:: Kecia Date Notified:: 10/08/18 Time Notified:: 18:18 Ordering Provider: DARINEL Attending physician on discharge: Bebe Anderson Anticipated date of discharge: 10/09/18 Brief History from admission: 23-year-old man with a medical history of Chiari malformation status post craniotomy at age 7 was brought to the ED for evaluation of her activity. Patient was records this morning of her whole family when he started having generalized tonic-clonic seizure. EMS was called and patient was postictal. Apparently, patient states over the past 12 months he was having some left facial numbness and tingling, and was told by his neurologist possibly had some silent seizure and this was 8 months ago. He is not currently on any type of antiepileptic drugs. Patient has a history of shunt placement. Denies any chest pain or shortness of breath. Patient is followed by a neurologist up in [place], Dr. Adamson [phone] Patient update on day of discharge: Follow up on patient with new seizure. Patient seen and examined. Patient denies any seizure activity since admission. He is complaining of some left-sided neck pain and spasm. He says he hears what he thinks is fluid moving around in his neck on the left side. He denies any fever or chills. He denies any chest pain or dyspnea. He denies any N/V or abdominal pain. Patient is asking if he can be discharged today. He says he can follow up with his neurologist in [place] following discharge. However, family is adamant patient undergo MRI imaging prior to discharge. Apparently, patients shunt is located within a cyst within his cervical spine. DS: Summary Patient given loading dose of Keppra in the ED and continued on IV Keppra 500mg BID. Shunt series did not identify any shunt present. Patient underwent MRI/ MRA of the brain which was unremarkable. Neck MRA was negative. EEG did not show any epileptiform activity. Patient complained of left sided neck pain and abnormal fluid sounds with head movement. Patients imaging was informally reviewed by neurosurgeon Dr. Kebede who could not appreciate any evidence of fluid collection. At the family's request, MRI of the cervical and thoracic spine was obtained to better image his shunt as it was placed within a cyst in his cervical spine per their report. No gross abnormality was noted on the imaging. Patient was seen in consultation by Neurology who cleared patient for discharge to home with instructions to follow up with his neurologist in [place] as outpatient. Patient did not have any recurrence of seizure activity. Patient had an unexpected and unforeseen improvement in his medical condition. He reached the maximal benefit of his hospitalization and was discharged to home. Patient was advised to not drive, operate heavy machinery, go up on heights, swim alone or care for small children unsupervised for at least 6 mos or until cleared to do so by his neurologist. He was given a prescription for Keppra 500mg po BID. Time Spent with Patient Total time spent providing and/or coordinating discharge services: Quality: VTE Deep Vein Thrombosis/Pulmonary Embolism Present on Admission: No Exam Narrative Exam Narrative: GENERAL: WDWN young male patient, INAD. Awake and alert. Appears comfortable. Mother and brother are at the bedside. SKIN: Warm and dry. No generalized rash. HEENT: Atraumatic. Normocephalic. Pupils equal and round. No scleral icterus. No injection or drainage. No nasal bleeding or discharge. Mucous membranes pink and moist. NECK: Trachea midline. CARDIOVASCULAR: Regular rate and rhythm. RESPIRATORY: No accessory muscle use. Clear to auscultation. Breath sounds equal bilaterally. GASTROINTESTINAL: Abdomen soft, non-tender, nondistended. +BS. MUSCULOSKELETAL: Extremities without clubbing, cyanosis, or edema. No obvious deformities. + palpable tender left sided cervical paraspinal/periscapular muscle spasm. NEUROLOGICAL: Awake and alert. No obvious cranial nerve deficits. Motor grossly within normal limits. Five out of 5 muscle strength in the arms and legs. Normal speech. PSYCHIATRIC: Appropriate mood and affect; insight and judgment normal Results Impressions ITS Impressions Head CT 10/08/18 14:02 CONCLUSION: 1. No acute findings. . Shunt Study 10/08/18 14:33 CONCLUSION: No shunt is identified. Head MRI 10/08/18 17:51 CONCLUSION: No acute intracranial abnormalities are demonstrated on this noncontrast head MRI. Previous occipital craniotomy/Chiari malformation surgery. Head MRA 10/08/18 17:51 CONCLUSION: No acute abnormalities of the intracranial arteries. Neck MRA 10/08/18 17:51 CONCLUSION: 1. Unremarkable examination. Percent stenosis is calculated using the diameter of the stenotic region over the diameter of the normal distal internal carotid artery Cervical Spine MRI 10/09/18 18:13 CONCLUSION: 1. Central T2 signal abnormality within the cord from C2 to C5 somewhat unusual but may be related to a syrinx versus less likely demyelinating process. This is commonly seen with patients with Chiari malformation. Outpatient imaging of the spine recommended in 3 months to document stability. At that time contrast should also be utilized. 2. The remainder of the cervical spine otherwise unremarkable. Thoracic Spine MRI 10/09/18 18:13 CONCLUSION: 1. T2 signal abnormality scattered centrally within the cord and also within a split filum terminale most consistent with syrinx. Follow-up imaging on an outpatient basis in 3 months recommended. At this time contrast imaging may be warranted. 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 Discharge Plan Discharge Disposition Patient Disposition: 01 Discharge Home Discharge Condition Condition: Stable Discharge Order Discharge Orders: Discharge Order (Routine); Ordered 10/09/18 Ordered By: Bebe Anderson Discharge Details Anticipated Discharge Date: 10/09/18 Physicians Team ED Provider: Luis Hollins Primary Care Provider: UNKNOWN, Attending Provider: Bebe Anderson Other Providers: Shu Abreu Rxs /Orders / Referrals /Forms Prescriptions: New levetiracetam [Keppra] 500 mg Tablet 500 mg PO BID Qty: 60 RF: 0 No Action No Known Home Medications RF: 0 Referrals: Neurologist [Outside] - See Instructions ( Please call the physician's office to book the appointment to be seen within one week.) Primary Care Provider [Outside] - See Instructions ( Please call the physician's office to book the appointment to be seen within one week.) UNKNOWN, [Primary Care Provider] - See Instructions (Neurosurgeon within 2-3 weeks. ) Discharge Instructions Patient Printed Instructions: Levetiracetam (By mouth), Epilepsy (GEN) Post Discharge Care Plan Care Plan Goals: Your Health Problems: New Onset Seizures Goals to Promote Your Health: * To prevent worsening of your condition * To maintain your health at the optimal level DO NOT DRIVE, OPERATE HEAVY MACHINERY, SWIM ALONE, GO UP ON HEIGHTS OR CARE FOR SMALL CHILDREN UNASSISTED Directions to Meet Your Goals: * Take your medications as prescribed * Follow your dietary instruction * Follow activity as directed * Keep your appointments as scheduled * Take your immunizations and boosters as scheduled * If your symptoms worsen call your PCP * If no PCP go to Urgent Care or Emergency Room Smoking is dangerous to your health. Avoid second hand smoke. You may reach the 24-hour crisis hotline for domestic abuse at . Status ED Status: Left Department Discharge Information Discharge Date/Time: 10/09/18 21:10
== END 2018-10-09 21:10 | disposition home or self-care (01) | DRG 100 ==
LOC: NEPC 13:56 → NEDA 18:06 → N04 20:34
PROVIDERS: ADMIT Hospitalist; ATTEND Hospitalist
CPT/HCPCS: 70250; 70450; 70544; 70548; 70551; 71010; 71045; 72040; 72141; 72146; 74000; 74018; 80053; 80307; 82040; 82550; 83735; 84443; 85025; 85610; 85730; 93005; 95819; A9585; C9238; J1953; J2270; J2405; J7030